=== PATIENT | female | born 1970 | race African-American/Black ===

== ENCOUNTER 2019-05-02 18:49 | Emergency (ER) | payer MEDICAID, OTHER ==
[~2019-05-02] VITALS: Ht 167.6 cm; Wt 85.0 kg
[2019-05-02] MEDS ORDERED: BACITRACIN ZINC OINT UDPKT TOP ONE (20:00)
[2019-05-02] MEDS ORDERED: TETANUS, DIPHTHERIA, PERTUSSIS VAC/PF 0.5ML (>7YR OLD) IM ONE (20:00)
[2019-05-02] MEDS ORDERED: HYDROCODONE/ACETAMINOPHEN 5/325MG TABLET PO ONE (20:00)
[2019-05-02] MEDS ORDERED: LIDOCAINE HCL/PF 1% 10 MG/ML 5ML VIAL IJ ONE (20:00)
[2019-05-02] MEDS ORDERED: KETOROLAC 30MG/ML VIAL IM ONE (20:00)
[2019-05-02] MEDS ORDERED: BACITRACIN 15GM TUBE TOP NR (21:28)
[2019-05-02 22:14] VITALS: BP 132/82
== END 2019-05-02 22:15 | disposition home or self-care (01) ==
LOC: ER 19:44
DX: S61.215A Laceration without foreign body of left ring finger without damage to nail, initial encounter (principal); I10 Essential (primary) hypertension; K21.9 Gastro-esophageal reflux disease without esophagitis; Z98.890 Other specified postprocedural states; Z88.8 Allergy status to other drugs, medicaments and biological substances; W27.8XXA Contact with other nonpowered hand tool, initial encounter; Y93.89 Activity, other specified; Y92.89 Other specified places as the place of occurrence of the external cause; Y99.8 Other external cause status
CPT/HCPCS: 12002; 73140; 90471; 90715; 96372; 99283; J1885; J3490